=== PATIENT | female | born 1965 | race Hispanic/Latino ===

== ENCOUNTER 2022-03-24 06:59 | Day surgery (SDC) | payer OTHER ==
[2022-03-21 17:33] LABS: BASOPHILS % (AUTO) 0.7 % (0.0-5.0); HEMATOCRIT 38.6 % (36-48); LYMPHOCYTES % (AUTO) 36.4 % (21.0-51.0); MEAN CORPUSCULAR HEMOGLOBIN 29.7 pg (27.0-33.0); MEAN CORPUSCULAR HGB CONC 33.4 g/dL (32.0-36.0); MEAN CORPUSCULAR VOLUME 88.7 fL (79-99); MONOCYTES % (AUTO) 5.2 % (3.0-13.0); NEUTROPHILS % (AUTO) 56.3 % (40.0-77.0); PLATELET COUNT (AUTO) 276 K/uL (130-400); RED BLOOD CELL COUNT(AUTO) 4.35 MIL/uL (4.00-5.50); RED CELL DISTRIBUTION WIDTH 13.1 % (11.0-15.5); WHITE BLOOD COUNT (AUTO) 7.3 K/uL (4.8-10.8)
[2022-03-21 17:34] LABS: APPEARANCE,URINE CLEAR (CLEAR); BILIRUBIN,URINE NEGATIVE (NEGATIVE); COLOR,URINE COLORLESS (YELLOW); GLUCOSE, URINE (UA) >=1000 mg/dL (NEGATIVE); KETONES,URINE NEGATIVE (NEGATIVE); LEUKOCYTE ESTERASE ,URINE NEGATIVE Leu/uL (NEGATIVE); NITRATE,URINE NEGATIVE (NEGATIVE); OCCULT BLOOD,URINE NEGATIVE (NEGATIVE); PH,URINE 6.5 (5.0-8.0); PROTEIN,URINE NEGATIVE (NEGATIVE); UROBILINOGEN,URINE 0.2 mg/dL (0.2-1.0)
[2022-03-21 17:39] LABS: MUCUS,URINE RARE LPF (None Seen); RBC,URINE 0-1 /HPF (0-1); SQUAMOUS EPITHELIAL CELL,UR RARE /HPF (0-2); WBC,URINE 0-1 /HPF (0-1)
[2022-03-21 17:46] LABS: INR 0.93 (0.85-1.15); PROTHROMBIN TIME 10.1 SEC (9.6-11.6)
[2022-03-21 17:47] LABS: POTASSIUM 3.8 mmol/L (3.5-5.1)
[2022-03-21 17:48] LABS: PARTIAL THROMBOPLASTIN TIME 25.6 SEC (26.3-35.5)
[2022-03-23 09:26] VITALS: BP 133/73
[~2022-03-24] VITALS: Ht 162.6 cm; Wt 68.0 kg
[2022-03-24] VITALS (17 sets, daily range): BP systolic 102–139; BP diastolic 62–84
[~2022-03-24 06:59] MED LIST: 0.9% NACL 500ML IV.SOLN 500 ML IV SCH; BUPIVACAINE/PF 0.5% 10ML VIAL ONE; CALCIUM PO; CEFAZOLIN SODIUM 2 GM VIAL IVPB SCH; DAPA5TAB PO; LISI5TAB21 PO; MELATONIN PO; METF-444 PO; ROSU5TAB12 PO; VITAMIN D PO; [UNRECOGNIZED DRUG - OTHER] PO
[2022-03-24] MEDS ORDERED: 0.9%NACL 1000ML 1,000 ML IV ONE (07:27)
[2022-03-24] MEDS ORDERED: CEFAZOLIN SODIUM 1 GM VIAL ONE (07:27)
[2022-03-24] MEDS ORDERED: FENTANYL CITRATE PF 50 MCG/1 ML 2ML VIAL ONE ×2 (07:56→09:47)
[2022-03-24] MEDS ORDERED: LIDOCAINE PF 100MG/5ML (2%) SYRINGE 5ML ONE (07:56)
[2022-03-24] MEDS ORDERED: PROPOFOL 10 MG/ML 20ML VIAL IV ONE ×2 (07:56→09:46)
[2022-03-24] MEDS ORDERED: GLYCOPYRROLATE 1 MG/5 ML SYRINGE ONE ×2 (07:56→10:26)
[2022-03-24] MEDS ORDERED: MIDAZOLAM HCL 1 MG/ML 2ML VIAL ONE ×2 (07:56→09:46)
[2022-03-24] MEDS ORDERED: NEOSTIGMINE 5MG/5ML SYR IV ONE ×2 (07:56→10:29)
[2022-03-24] MEDS ORDERED: ROCURONIUM 10MG/1ML SYR 10 MG/ML ML ONE ×2 (07:56→09:47)
[2022-03-24] MEDS ORDERED: LIDOCAINE HCL-MPF 2% 10ML AMP IJ ONE (09:46)
[2022-03-24] MEDS ORDERED: PHENYLEPHRINE HCL 10 MG/ML 1ML VIAL IV ONE (10:07)
[2022-03-24] MEDS ORDERED: KETOROLAC 30MG VIAL (30MG/ML) ONE (10:30)
[2022-03-24] MEDS ORDERED: DEXAMETHASONE SOD PHOSPHATE 4 MG/ML 1ML VIAL ONE (10:30)
[2022-03-24] MEDS ORDERED: ONDANSETRON 4MG INJ ONE (10:32)
== END 2022-03-24 13:08 | disposition home or self-care (01) ==
LOC: DAH 06:59
PROVIDERS: ATTEND Student in an Organized Health Care Education/Training Program
DX: K80.10 Calculus of gallbladder with chronic cholecystitis without obstruction (principal); Z20.822 Contact with and (suspected) exposure to COVID-19; K66.0 Peritoneal adhesions (postprocedural) (postinfection); K82.8 Other specified diseases of gallbladder; I10 Essential (primary) hypertension; E11.9 Type 2 diabetes mellitus without complications; K21.9 Gastro-esophageal reflux disease without esophagitis; Z79.01 Long term (current) use of anticoagulants; Z79.899 Other long term (current) drug therapy; Z90.710 Acquired absence of both cervix and uterus; Z82.49 Family history of ischemic heart disease and other diseases of the circulatory system; Z83.3 Family history of diabetes mellitus
CPT/HCPCS: 80048; 85025; 85610; 85730; 87426; 81001; 36415; 71045; 93005; 47562; 82948 ×2; J1100; A4663; A6207; J7030 ×2; J3010; J0690; J3490 ×3; J2710; J2250; J2704; J2405; J1885; J2370; A6206; C1769 ×3; A4649 ×2; A4930; A4215; A4223; A4222; A4221; A4600; J2001